=== PATIENT | male | born 1975 | race Hispanic/Latino ===

== ENCOUNTER 2018-03-09 14:16 | Inpatient (IN) | payer MEDICARE ==
[~2018-03-09] VITALS: Ht 170.2 cm; Wt 82.8 kg
[~2018-03-09 14:16] MED LIST: ACIDOPHILUS1 EAC4 PO; ALPRAZOLAM0.25 MG PO; AMBIEN10 MG PO; AMLODIPINE BESY10 MG PO; ATENOLOL100 MG PO; ATRIPLA TABLET1 EACH PO; ATRIPLA TABLET1 TAB PO; CARAFATE1 GM/10 ML PO; CLONIDINE HCL0.1 MG PO; DIOVAN160 MG PO; EMLA CREAM30 GM TOP; EXFORGE 10-1601 EACH PO; FLONASE; KEFLEX500 MG PO; LORATADINE10 M1 PO; MOBIC7.5 MG PO; MUCINEX DM ER1 EACH PO; OMEPRAZOLE40 MG PO; PRESCOBIX PO; PROMETHAZINE HC25 M1 PO; QUETIAPINE FUMA25 MG PO; TIZANIDINE HCL4 M1 PO; TRUVADA 200 MG1 EACH PO; ULTRAM 50MG50 MG PO; Z.0.NEXIUM20 MG PO; [UNRECOGNIZED DRUG - OTHER]
[2018-03-09] MEDS ORDERED: SODIUM CHLORIDE FLUSH 10 ML SYR INJ PRN ×2 (14:45→17:00)
[2018-03-09 15:08] LABS: BASOPHILS # (AUTO) 0.1 (0.0-0.1); BASOPHILS % 0.8 % (0.0-1.0); EOSINOPHILS # (AUTO) 0.2 (0.0-0.4); EOSINOPHILS % 3.3 % (0.0-6.0); HEMATOCRIT 34.1 % (38.2-49.6); HEMOGLOBIN 11.1 g/dL (14.0-18.0); LYMPHOCYTES # (AUTO) 1.8 (1.0-3.2); LYMPHOCYTES % 26.7 % (18.0-39.1); MEAN CORPUSCULAR HEMOGLOBIN 32.6 pg (28-32); MEAN CORPUSCULAR HGB CONC 32.6 g/dL (31-35); MONOCYTES % 15.3 % (4.4-11.3); NEUTROPHILS # (AUTO) 3.5 (2.1-6.9); NEUTROPHILS % 53.4 % (38.7-80.0); PLATELET COUNT 77 x10e3/uL (140-360); RED BLOOD COUNT 3.41 x10e6/uL (4.3-5.7); RED CELL DISTRIBUTION WIDTH 18.9 % (11.7-14.4)
[2018-03-09 15:29] LABS: ALBUMIN 3.6 g/dL (3.5-5.0); ALBUMIN/GLOBULIN RATIO 0.9 (0.8-2.0); ANION GAP 16.1 mmol/L (8-16); CALCIUM 9.8 mg/dL (8.4-10.2); CREATININE, SERUM 2.51 mg/dL (0.72-1.25); POTASSIUM 3.1 mmol/L (3.5-5.1)
[2018-03-09 15:36] LABS: CREATINE KINASE MB 2.1 ng/mL (0-5.0)
[2018-03-09 15:45] LABS: CLARITY,URINE CLEAR (CLEAR); COLOR,URINE YELLOW (YELLOW)
[2018-03-09 15:46] LABS: BACTERIA,URINE FEW /HPF; BILIRUBIN,URINE NEGATIVE (NEGATIVE); EPITHELIAL CELLS,URINE FEW /LPF; KETONES,URINE NEGATIVE (NEGATIVE); LEUKOCYTE ESTERASE ,URINE NEGATIVE (NEGATIVE); NITRITE,URINE NEGATIVE (NEGATIVE); PROTEIN,URINE DIPSTICK NEGATIVE (NEGATIVE); RBC,URINE 0-5 /HPF (0-5); URINE UROBILINOGEN 0.2 mg/dL (0.2 - 1); WBC,URINE (MAN) 0-5 /HPF (0-5)
[2018-03-09 15:49] LABS: PLATELET ESTIMATE SLIGHTLY DECREASED; PLATELET MORPHOLOGY COMMENT NORMAL; RBC MORPHOLOGY COMMENT NORMAL
[2018-03-09] MEDS ORDERED: LEVOFLOXACIN 750MG/D5W 150ML 150 ML IV STA (16:00)
[2018-03-09] MEDS ORDERED: VANCOMYCIN 1GM/NS 250 ML 250 ML IV STA (16:00)
--- NOTE | 2018-03-09 16:25 | Diagnostic Imaging Report ---
EXAMINATION: CHEST SINGLE (PORTABLE) INDICATION: \S\right great toe infection \[id number] \S\1525 COMPARISON: Chest radiograph 11/10/2016 FINDINGS: AP view TUBES and LINES: None. LUNGS: Lungs are well inflated. Central congestion with perihilar interstitial opacities, increased compared to 11/10/2016. PLEURA: No pleural effusion or pneumothorax. HEART AND MEDIASTINUM: Mild enlargement of the cardiac silhouette. BONES AND SOFT TISSUES: No acute osseous lesion. Soft tissues are unremarkable. UPPER ABDOMEN: No free air under the diaphragm. IMPRESSION: Mild cardiomegaly with perihilar interstitial opacities concerning for interstitial edema. Signed by: DR. Curtis Balderas MD on 03/09/2018 4:22 PM
[2018-03-09] MEDS ORDERED: POTASSIUM CHLORIDE 20 MEQ TAB CR PO ONE ×2 (16:30→20:00)
[2018-03-09] MEDS: SODIUM CHLORIDE 0.9% 1000ML 1,000 ML IV SCH (16:47)
[2018-03-09] MEDS ORDERED: DIPHENHYDRAMINE HCL INJ 50 MG/ML VIAL IV STA (16:59)
[2018-03-09] MEDS ORDERED: FENTANYL CITRATE/PF 100MCG/2 ML INJ IV ONE (17:00)
[2018-03-09] MEDS ORDERED: LEVOFLOXACIN 500MG/D5W 100ML 100 ML IV SCH (17:00)
[2018-03-09] MEDS ORDERED: SODIUM CHLORIDE 0.9% 1000ML 1,000 ML IV SCH (17:00)
[2018-03-09] MEDS ORDERED: METHYLPREDNISOLONE SOD SUCC 125 MG/2ML VIAL IV ONE (17:30)
--- OUTSIDE RECORDS SUMMARY | 2018-03-09 17:50 | XMS REPORT ---
Author Author [facility] Address Unknown Phone Unavailable Care Team Providers Care Value Stream Leader Name Role Phone DANIELLE BOSTON Unavailable Unavailable Problems This patient has no known problems. Allergies, Adverse Reactions, Alerts This patient has no known allergies or adverse reactions. Medications This patient has no known medications. Results Test Description Test Time Test Comments Text Results Atomic Results Result Comments CHEST SINGLE (PORTABLE) [place] [id number] Patient Name: RODOLFO SELF MR #: [id number] : 1975 Age/Sex: 42/M Req #: [id number] Adm Physician: Ordered by: RYAN COOPER Report #: [id number] Location: ER Room/Bed: Procedure: [id number] DX/CHEST SINGLE (PORTABLE) Exam Date: Exam Time: 1525 REPORT STATUS: Signed EXAMINATION: CHEST SINGLE (PORTABLE) INDICATION: COMPARISON: Chest radiograph 11/10/2016 FINDINGS: AP view TUBES and LINES: None. LUNGS: Lungs are well inflated. Central congestion with perihilar interstitial opacities, increased compared to 2016. PLEURA: No pleural effusion or pneumothorax. HEART AND MEDIASTINUM: Mild enlargement of the cardiac silhouette. BONES AND SOFT TISSUES: No acute osseous lesion. Soft tissues are unremarkable. UPPER ABDOMEN: No free air under the diaphragm. IMPRESSION: Mild cardiomegaly with perihilar interstitial opacities concerning for interstitial edema. Signed by: DR. Curtis Bateman MD on 03/09/2018 4:22 PM Dictated By: CURTIS BATEMAN MD 162 Transcribed By: BJ on 03/09/181621 COPY TO : RYAN COOPER
[2018-03-09] MEDS ORDERED: ACETAMINOPHEN/CODEINE 300MG - 30MG TAB PO PRN (19:00)
[2018-03-09] MEDS ORDERED: HYDROCODONE/APAP 5MG-325MG TAB PO PRN (19:30)
[2018-03-09] MEDS ORDERED: PLAVIX75 MG PO (19:41)
[2018-03-09] MEDS ORDERED: COREG3.125 MG PO (19:41)
[2018-03-09] MEDS ORDERED: ZOLPIDEM TARTRAT5 MG PO (19:41)
[2018-03-09] MEDS ORDERED: GABAPENTIN400 MG PO (19:41)
[2018-03-09] MEDS ORDERED: TYLENOL WITH C1 EACH PO (19:41)
[2018-03-09] MEDS ORDERED: PREZISTA75 MG PO (19:41)
[2018-03-09] MEDS ORDERED: PANTOPRAZOLE SO40 MG PO (19:41)
[2018-03-09] MEDS ORDERED: SUCRALFATE1 GM PO (19:41)
[2018-03-09] MEDS ORDERED: ABACAVIR300 MG PO (19:41)
[2018-03-09] MEDS ORDERED: LASIX20 MG PO (19:41)
[2018-03-09] MEDS ORDERED: NORVIR100 MG PO (19:41)
[2018-03-09] MEDS ORDERED: ASPIR 8181 MG PO (19:41)
[2018-03-09] MEDS ORDERED: LEVOFLOXACIN5 ML PO (19:41)
[2018-03-09] MEDS ORDERED: NORCO 5-325 TA1 EACH PO (19:41)
[2018-03-09] MEDS ORDERED: ISENTRESS400 MG PO (19:41)
--- NOTE | 2018-03-09 20:52 | History and Physical ---
CHIEF COMPLAINT: Left groin wound infected, painful, draining. Hence, infectious disease specialist, Dr. James, referred the patient to the hospital today. HISTORY OF PRESENT ILLNESS: This 42-year-old, pleasant male with a past medical history of multiple medical problems was admitted at [facility] this afternoon with the above complaints. The patient has been in and out of the hospital for the last 1 month. As per the patient, he had acute OK on 02/02/2018. The patient was taken by ambulance to [facility]. The patient was diagnosed with ST-elevation myocardial infarction. At that time, the patient was seen by manager supplier, Dr. Pacheco. The patient had coronary angiogram done and stent put in LAD. The patient was also found to have ischemic cardiomyopathy with acute systolic failure and tiny VSD. Hence, the patient was transferred from [facility] to [facility]. There, the patient on 02/07/2018 had VSD closure done. Echo done on 02/14/2018 at [facility] showed ejection fraction of 35% to 40%. The patient was sent home on 02/18/2018. At that time, the patient had left groin drainage, swelling and pain at the site of cardiac catheterization. Since the last 3 to 4 days, the patient started having increased fluid discharge from the left groin wound progressively getting red and painful, and yellow, purulent discharge was starting. Hence, infectious disease, Dr. James, referred the patient to the ER today. At present, the patient is lying comfortably in bed in no apparent distress. No chest pain. No shortness of breath. No nausea, vomiting, or diarrhea. No abdominal pain, loss of consciousness, or palpitations. No headaches. No hematemesis. No melena, hematuria or dysuria. No fever. No cough. No witnessed seizures. PAST MEDICAL HISTORY 1. Recent ST-elevation OK, status post LAD PTCA stent. 2. Ischemic cardiomyopathy with ejection fraction of 35% to 40%. 3. Recent VSD closure. 4. Chronic kidney failure. 5. HIV. MEDICATIONS 1. Abacavir. 2. Tylenol No. 3. 3. Xanax. 4. Aspirin 81 mg. 5. Coreg 3.125 p.o. q.12. 6. Plavix 75 mg daily. 7. Prezista 800 mg daily. 8. Lasix 60 mg daily. 9. Gabapentin 200 mg 3 times a day. 10. [place] 5 per 325 p.o. q.4 h. 11. Levaquin 500 mg daily. 12. 40 mg b.i.d. 13. Isentress 400 mg p.o. b.i.d. 14. Norvir 100 mg p.o. daily. 15. Ambien 5 mg p.o. nightly. ALLERGIES: PENICILLIN, MORPHINE, TRAMADOL, KETORALAC. SURGICAL HISTORY: As above. SOCIAL HISTORY: No smoking. No alcohol. No illicit drug use. FAMILY HISTORY: Noncontributory. REVIEW OF SYSTEMS: As per HPI. PHYSICAL EXAMINATION GENERAL: The patient is alert and oriented times 3, in no apparent distress, lying in bed. No cyanosis. No icterus. No pallor. VITALS: Temperature is 99, pulse 90 per minute, respiratory rate 18 per minute, blood pressure 115/80, saturation 100%. HEENT: Normocephalic and atraumatic. PERRLA. NECK: Soft and supple. No JVD. No lymphadenopathy. LUNGS: Air entry bilaterally equal. No rales or rhonchi. ABDOMEN: Soft and nontender. Bowel sounds plus. DRAGLINE OPERATOR HELPER: Alert and oriented times 3. No focal deficit. EXTREMITIES: Left groin wound plus, drainage plus, surrounding ecchymosis plus. LABORATORY: On admission to ER, white count 6.5, hemoglobin 11.1, hematocrit 34.1, platelets 77. Sodium 139, potassium 3.1, chloride 102, bicarb 24, BUN 31, creatinine 2.51, glucose 108. LFTs noted. BNP 1522. Urine is negative. Chest x-ray: Mild cardiomegaly with perihilar interstitial opacities concerning for interstitial edema. EKG shows normal sinus rhythm. Inferior infarct, age undetermined. Lateral ischemia. ASSESSMENT 1. Infected left groin wound with possible abscess, status post cardiac catheterization. 2. History of recent ST-elevation myocardial infarction, status post percutaneous transluminal coronary angioplasty and stent. 3. Ischemic cardiomyopathy. 4. Human immunodeficiency virus. 5. Thrombocytopenia. PLAN 1. Admit the patient to [facility]. Patient started on IV antibiotics, vancomycin and Levaquin. As per ID, Dr. James, pancultures. Surgery consultation with Dr. Rios. 2. History of recent ST-elevation OK and ischemic cardiomyopathy status post PTCA and stent and VSD status post closure. Cardiology consultation with Dr. Pacheco. Lasix 40 mg IV q.12 h. 3. Bramp-no-vlrdneu renal failure. Get ultrasound of renal, serial electrolytes, renal consultation with Dr. Berry. 4. Thrombocytopenia. Will get hematology consultation with Dr. Ramirez. Patient already took aspirin and Plavix at home today. Further antiplatelet therapy as per cardiology and hematology consultations. 5. Further care and treatment per the clinical course of the patient in the hospital. The prognosis and condition are guarded. Discussed with the patient and mother at bedside in detail. Job#: [id number]
[2018-03-09] MEDS: FUROSEMIDE INJ 10 MG/ML 4 ML VIAL IV SCH (21:01)
[2018-03-09 21:03] VITALS: BP 112/82
[2018-03-09] MEDS: HYDROMORPHONE 2MG/ML INJ IV PRN (21:22)
[2018-03-09 22:00] VITALS: BP 112/82
[2018-03-10] VITALS (10 sets, daily range): BP systolic 110–126; BP diastolic 77–93
--- NOTE | 2018-03-10 01:21 | Diagnostic Imaging Report ---
EXAM: Renal Ultrasound INDICATION: Sepsis, hypokalemia COMPARISON: None TECHNIQUE: Transverse and longitudinal sonographic images of the kidneys and bladder were obtained. FINDINGS: RIGHT KIDNEY: 7.4 x 5.1 x 5.4 cm, normal cortical thickness. Echogenicity: Increased Hydronephrosis: None Calculi: None Cyst/Mass: None LEFT KIDNEY: 6.1 x 7.8 x 6 cm, normal cortical thickness. Echogenicity: Increased Hydronephrosis: None Calculi: None Cyst/Mass: None BLADDER: Normal in appearance. IMPRESSION: Small kidneys with increased echogenicity suggests chronic renal insufficiency. Signed by: Dr. Aissatou Cooper M.D. on 03/10/2018 1:17 AM
[2018-03-10] MEDS: HYDROMORPHONE 2MG/ML INJ IV PRN ×4 (03:21→19:56)
[2018-03-10] MEDS ORDERED: LEVOFLOXACIN 500MG/D5W 100ML 100 ML IV SCH (05:00)
[2018-03-10 06:29] LABS: BASOPHILS % 0.3 % (0.0-1.0); HEMOGLOBIN 10.2 g/dL (14.0-18.0); LYMPHOCYTES # (AUTO) 0.4 (1.0-3.2); MEAN CORPUSCULAR HEMOGLOBIN 32.9 pg (28-32); MEAN CORPUSCULAR HGB CONC 31.9 g/dL (31-35); MEAN CORPUSCULAR VOLUME 103.2 fL (81-99); MONOCYTES % 1.4 % (4.4-11.3); NEUTROPHILS # (AUTO) 2.5 (2.1-6.9); RED CELL DISTRIBUTION WIDTH 18.7 % (11.7-14.4)
[2018-03-10 06:45] LABS: PLATELET COUNT 47 x10e3/uL (140-360)
[2018-03-10 07:10] LABS: ALBUMIN 3.2 g/dL (3.5-5.0); ALBUMIN/GLOBULIN RATIO 0.9 (0.8-2.0); ANION GAP 14.3 mmol/L (8-16); CALCIUM 8.9 mg/dL (8.4-10.2); CREATININE, SERUM 2.02 mg/dL (0.72-1.25); POTASSIUM 3.3 mmol/L (3.5-5.1)
[2018-03-10] MEDS: FUROSEMIDE INJ 10 MG/ML 4 ML VIAL IV SCH ×2 (09:00→21:50)
[2018-03-10] MEDS ORDERED: MAGNESIUM SULFATE 2GM/50ML 50 ML IV ONE (09:30)
[2018-03-10] MEDS ORDERED: POTASSIUM CHLORIDE 20 MEQ TAB CR PO ONE ×3 (09:30→13:30)
[2018-03-10] MEDS: VANCOMYCIN 1GM/NS 250 ML 250 ML IV SCH (09:56)
[2018-03-10] MEDS ORDERED: ACETAMINOPHEN 325 MG TAB PO PRN (10:15)
[2018-03-10] MEDS ORDERED: DIATRIZOATE MEGL/DIATRIZOA SOD 30 ML BTL PO ONE (11:05)
[2018-03-10 11:25] LABS: ANISOCYTOSIS SLIGHT; LYMPHOCYTES % (MANUAL) 10 % (19-48); MONOCYTES % (MANUAL) 2 % (3.4-9.0); NEUTROPHILS % (MANUAL) 88 % (40-74); PLATELET ESTIMATE MODERATELY DECREASED; PLATELET MORPHOLOGY COMMENT NORMAL; RBC MORPHOLOGY COMMENT NORMAL
--- NOTE | 2018-03-10 13:31 | Consultation ---
DATE OF CONSULTATION: March 10, 2018 ADDENDUM We will get an MRI, and depending on the MRI result, we may have to do surgery today in this hospital or move him to the medical Center. Discussed with the patient and we will follow. We will also continue to follow with vancomycin trough, CBC, Chem panel, and cultures. Job#: [id number] JASWINDER
--- NOTE | 2018-03-10 13:49 | Consultation ---
DATE OF CONSULTATION: March 10, 2018 CHIEF COMPLAINT: Infected left groin wound. HISTORY OF PRESENT ILLNESS: The patient is a 42-year-old male who is immunocompromised and is HIV positive, and he has had an acute TN on February 02 of this year. He was taken to [facility]. He had stents placed through the left groin by interventional cardiology. At that time, he was also found to have ischemic cardiomyopathy and a small VSD. He was transferred to [facility] where the VSD closure was performed on February 07. The patient was sent home on 02/18; however, recommendation while he was in the hospital was for a muscle flap to be placed in the left groin for the chronic infected region. Cardiology stated that the patient was too acute after the cardiac event to undergo a surgery of that magnitude and it was put on hold. Patient came to our ER yesterday with complaints of fever and increased drainage from the left groin. Consultations now requested are plastic surgery regarding the timing and the performance of vascularized tissue graft of the left groin. PAST MEDICAL AND PAST SURGICAL HISTORY: Noncontributory. PERTINENT PHYSICAL EXAMINATION SKIN: The left groin has moderate amount of ecchymosis. There is an Ethibond suture in the left groin. There is an approximately 4-5 cm linear incision, which has full thickness dehiscence in 2 locations measuring a total of 1 cm in length open down to the subcutaneous tissue. There is what appears to be seropurulent type fluid that is draining. The area is very tender to touch and it is as much and previously fairly indurated consistent with the chronicity of the recent procedure. LABORATORY DATA: The WBCs are 2.92 today, hemoglobin is 10, hematocrit is 32, and platelets are 47,000. IMPRESSION: Left groin wound secondary to interventional cardiologic procedure. 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 The patient was scheduled for CAT scan of the abdomen and pelvis without IV contrast because of poor renal function to look at the femoral area. I have discussed the CAT scan with the radiologist, and since the patient cannot receive IV contrast as per nephrology consult, a better test would be an MR without contrast of the femoral area. We need to elucidate whether there is infection in and around the femoral artery. If there is, then this patient would best be served by going downtown where vascular surgery support for this type of procedure is present. Thank you for allowing me to participate in the care of your patient. Job#: [id number] JASWINDER
--- NOTE | 2018-03-10 14:10 | Consultation ---
DATE OF CONSULTATION: March 10, 2018 REASON FOR CONSULTATION: Acute kidney injury. HISTORY OF PRESENT ILLNESS: History is predominantly from patient and partly from chart. Patient came in with possible infection of his femoral artery area, currently seen by plastics who suggested a CT contrast given the patient's workup which I will discuss in a short while of the femoral artery area. Renal consulted for management of acute kidney injury. Labs show BUN 30, creatinine 2.0, bicarbonate 19, creatinine 3.3. White count shows 2.92, hemoglobin 10.2 with a platelet 47. ALLERGIES: HE IS ALLERGIC TO PENICILLIN, KETOROLAC, MORPHINE, P[place]APP[place], AND TRAMADOL. SOCIAL HISTORY: He does not smoke or drink. PAST MEDICAL HISTORY: Significant for HIV. Patient denies prior history of any kidney insufficiency or kidney stone disease. History of diabetes, hypertension. PATIENT OF 1. Dr. Micky Serrano. 2. Dr. James. MEDICATIONS: He is on immunosuppressive medications and antiretroviral medications. His current medications include Levaquin 750 mg, mag sulfate, normal saline at 125 mL an hour which has been stopped. He was given some IV bicarb stat too. He is on furosemide 40 mg IV q.12. He received one dose of methylprednisolone. He is on carvedilol 3.125 mg q.12 and zolpidem p.r.n. He is on vancomycin 1 gram IV daily. He has had gram stain, wound culture. Blood cultures are pending. Urine culture are not back yet. PHYSICAL EXAMINATION GENERAL: Awake, alert, lying supine. No apparent distress. VITALS: Blood pressure 112/77, pulse rate 105, afebrile. HEAD AND NECK: Cornea clear. Mucosa dry. DIAGNOSTIC DATA: Chest x-ray shows evidence of congestive heart failure by my exam with evidence of cardiomegaly. Kidney ultrasound shows shrunken kidneys, 7.4 cm right kidney with increased echogenicity. Left kidney 6.1 cm with increased echogenicity. IMPRESSION AND PLAN: Fguvj-kb-keqqwuh kidney failure with evidence of chronic kidney disease, underlying renal tubular acidosis with hypokalemia. Total bilirubin is slightly elevated. Plan on replacement of potassium p.o. We will gently diurese. Currently, patient is not short of breath or any overt congestive heart failure. We will place on Lasix 40 mg p.o. b.i.d.. We will get spot urine protein-creatinine ratio. Patient at pgifspee-nf-vnsd risk for dye-induced nephropathy if IV contrast is used. Discussed with plastic surgery. If it is absolutely necessary, they can proceed after I explained to patient and if he agrees, but consider noncontrast CT or an alternative procedure. Patient does have advanced kidney failure, serum creatinine grossly underestimating underlying GFR. Job#: [id number] VAS
--- NOTE | 2018-03-10 14:24 | Consultation ---
DATE: March 10, 2018 CARDIOLOGY CONSULTATION REASON FOR CONSULTATION: Ongoing cardiac care. CONSULTING PHYSICIAN: Dr. Serrano. HISTORY OF PRESENT ILLNESS: Mr. Cornejo is a 42-year-old male with a complicated cardiac history, more recently had ST-elevation myocardial infarction on the 02 of February and was cared for at [facility] by Dr. Pacheco where he had a coronary angiogram done and a stent placed in his LAD. He was also noted to have ischemic cardiomyopathy with acute heart failure and also a tiny VSD. After his procedure, he was sent to [facility] in the [facility] where he underwent his VSD closure on January. It is reported that after that he noticed oozing and drainage in his left groin access site, and since then, he reports the drainage and the oozing has persisted. He came into [facility] per request of Dr. James due to the drainage in his left groin, also fever and chills, and also his history of HIV. We were consulted due to his ongoing cardiology needs. At the present time, patient endorses some shortness of breath and fatigue and also palpitations. He denies any chest pain. He does complain of left lower leg pain that worsens upon standing and also walking. Denied any dizziness, syncope, or chills at this time. PHYSICAL EXAMINATION VITAL SIGNS: Temperature 98.5, pulse 110, respiratory rate 18, blood pressure 111/86, and oxygen saturation 99% on room air. GENERAL: Alert and oriented x3, resting comfortably in bed, does not appear to be in any acute distress. Mother at the bedside. NECK: Supple. JVD noted bilaterally. No carotid bruits. CARDIOVASCULAR: Regular rate and rhythm. Tachycardic. Systolic ejection murmur present. S4 present. Normal S1 and S2. LUNGS: Diminished breath sounds anterior-posterior lower lobes; otherwise, clear to auscultation. No crackles, wheezing, or rhonchi noted. ABDOMEN: Soft and nontender. EXTREMITIES: Lower extremities, 2+ pitting edema. SKIN: Incisional site left groin with drainage noted. CARDIOVASCULAR MEDICATIONS: Coreg 3.125 mg p.o. b.i.d., Lasix 40 mg p.o. b.i.d., and potassium chloride 40 mEq p.o. LABORATORY DATA: WBC 2.92, hemoglobin 10.2, hematocrit 32.0, and platelets 47. Sodium 136, potassium 3.3, BUN 30, and creatinine 2.02. AST 26, ALT 18, and alkaline phosphatase 122. IMAGING: Chest x-ray with mild cardiomegaly and perihilar interstitial opacities concerning for interstitial edema. Renal ultrasound with small kidneys with increased echogenicity suggestive of chronic renal insufficiency. Telemetry, sinus tachycardia with left bundle branch block. IMPRESSION 1. Recent ST-elevation myocardial infarction. 2. Coronary artery disease. 3. Systolic heart failure. 4. Human immunodeficiency virus. 5. Chronic renal failure. 6. Thrombocytopenia. 7. Infected left groin wound with secondary left lower extremity pain. PLAN: Obtain repeat echocardiogram and bilateral lower extremity venous Dopplers. Continue the above listed cardiac medications. Transition p.o. Lasix to IV and up-titrate diuretic. Volume management per applications project manager. Patient not on dual-antiplatelet therapy with noted thrombocytopenia above. Hematology has been consulted. We will await their recommendations. Monitor on telemetry for now. Continue antimicrobial therapy per infectious disease. Up-titrate beta concetta above for better rate control. We will continue to follow very closely. Guarded prognosis. Thank you, Dr. Serrano, for this consultation. Dictated By: Fany Franklin NP Job#: [id number] JASWINDER
--- NOTE | 2018-03-10 14:58 | Diagnostic Imaging Report ---
EXAM: MRI HIP LEFT WO, MRI PELVIS WO INDICATION: \S\wound on left groin/thigh COMPARISON: Abdominal CT 10/22/2015 TECHNIQUE: Multiplanar and multisequence imaging was performed of the pelvis and left hip without IV contrast. Left Hip: Coronal T1, coronal and sagittal T2 fat-sat, coronal STIR, coronal/oblique axial/coronal PD/fat-sat. Pelvis: Coronal/axial T1, axial/sagittal T2, sagittal T2 fat sat IV Contrast: None secondary to low GFR Medications: None COMPLICATIONS: None FINDINGS: Limited evaluation secondary to lack of IV contrast. SOFT TISSUES: A 4.7 x 3.6 x 2.1 cm (SI x AP x TV) triangular shaped area in the left groin (left hip oblique axial PD/FS image 18) is hyperintense on T2WI and T1 intermediate in signal. This area extends from the skin to the common femoral artery until the origin of the superficial femoral artery. Edema is also noted in the subcutaneous fat of the anterior thigh. The flow voids in the artery in vein deep to this area are preserved. Fat-containing inguinal hernias bilaterally. BLADDER: Unremarkable. GI TRACT: No abnormal distention, wall thickening, or evidence of bowel obstruction. RECTUM: Rectum and mesorectum are unremarkable. LYMPH NODES: No lymphadenopathy. VESSELS: Flow voids are preserved. Limited evaluation for vascular pathology the absence of intravenous contrast. PERITONEUM / RETROPERITONEUM: No free air or fluid. BONES: No suspicious bone marrow signal abnormalities. Degenerative disc disease of the lower lumbar spine. IMPRESSION: Findings in keeping with reported vascular access in the left groin. There is nonspecific edema in the subcutaneous fat which may suggest cellulitis, as well as a more focal collection extending from the skin to the common femoral artery. The T2 hyperintensity suggests edema/inflammation or recent access rather than fibrosis from more remote access, although evaluation for infection is otherwise limited without IV contrast. Signed by: DR. Curtis Balderas MD on 03/10/2018 2:54 PM
[2018-03-10] MEDS: SODIUM CHLORIDE 0.9% 1000ML 1,000 ML IV SCH (15:00)
--- NOTE | 2018-03-10 15:36 | Diagnostic Imaging Report ---
EXAM: Complete Abdominal Ultrasound INDICATION: \S\cytopenia COMPARISON: Renal ultrasound 03/09/2018 TECHNIQUE: Transverse and longitudinal images of the upper abdomen were obtained. FINDINGS: Liver: Size: 17.8 cm in the right midclavicular line, enlarged Appearance: Increased echogenicity, smooth contour Mass: No focal masses Spleen: Size: 9.6 cm in length, normal Echogenicity: Normal Mass: No focal masses Gallbladder: Stones/Sludge: None Wall: 0.6 cm Appearance: No pericholecystic fluid or hydrops. Sonographic Solis's Sign: Negative Bile Ducts: Intrahepatic Ducts: No dilatation Extrahepatic Ducts: Common bile duct measures 0.2 cm, no dilatation Pancreas: Incompletely visualized due to overlying bowel gas, but no abnormality identified involving the visualized portions of the pancreas. Right Kidney: Size: 7.2 cm, small Echogenicity: Increased Parenchymal thickness: Normal Collecting System: No hydronephrosis Stone: None Cyst/Mass: None Left Kidney: Size: 9.3 cm, small Echogenicity: Increased Parenchymal thickness: Normal Collecting System: No hydronephrosis Stone: None Cyst/Mass: None Vessels: Aorta: Not well-visualized secondary to overlying bowel gas. Visualized portions are normal Inferior Vena Cava: Visualized portions are normal Main Portal Vein: 1.3 cm, upper normal size with hepatopetal flow. Free Fluid: No ascites or pleural effusion IMPRESSION: Mild gallbladder wall thickening, nonspecific in the absence of cholelithiasis or additional evidence of acute cholecystitis. Hepatomegaly and increased liver echogenicity likely secondary to hepatic steatosis. Small hyperechoic kidneys suggestive of medical renal disease. Signed by: DR. Curtis Balderas MD on 03/10/2018 3:33 PM
--- NOTE | 2018-03-10 16:24 | Consultation ---
DATE OF CONSULTATION: March 10, 2018 REASON FOR CONSULTATION 1. Surgical site infection, recommendation on antibiotic. 2. Fever. 3. HIV and AIDS. HISTORY OF PRESENT ILLNESS: This is a well known to me 42-year-old gentleman with history of HIV and AIDS, history of coronary artery disease, history of chronic kidney disease, and history of renal stone. Patient was recently in [facility] where he had myocardial infarction. He was transferred to the medical [place]. The patient apparently had VSD. The patient was transferred from [place] to [facility], and on February 07, 2018, had VSD closure done through an access from the femoral artery on the left. The patient was discharged home, but before discharge was noted to be having serosanguineous drainage, coming from the groin. He was supposed to see a vascular surgeon; however, because he just had recent myocardial infarction, he was told to go home and follow up as an outpatient. Then, he showed up to [place] again with some shortness of breath and that was addressed and he was discharged home. He came to see me in my office a week or so ago. I gave him the option to see if we can have Dr. Rios close this wound and he preferred that if we can do it here, so I was going to electively admit him tomorrow, but he called me yesterday with fever and chills and I told him to come to the hospital. Patient came to the hospital. He said there was drainage coming from his groin. There is also redness, swelling, and pain, so patient came to the emergency room where he was being admitted. PAST MEDICAL HISTORY: HIV and AIDS, coronary artery disease, recently had myocardial infarction status post LAD PTCA stent placement, status post ischemic cardiomyopathy with ejection fraction of 35%-40%, recently had a VSD closure, chronic kidney disease, HIV, and AIDS. MEDICATION: He is on abacavir, Tylenol No. 3, Xanax, aspirin, Coreg, Plavix, Prezista, Lasix, gabapentin, Narcan, and Ambien. He is on vancomycin, Dilaudid, Lasix, and levofloxacin. ALLERGIES: PENICILLIN. SOCIAL HISTORY: There is no smoking, drug abuse, or alcohol abuse. He is homosexual, but he had no sexual activity recently. REVIEW OF SYSTEMS CONSTITUTIONAL: He is just having pain. He does have issue with chronic pain and neuropathy. HEENT: There is no headache, visual change, or hearing change. GI: There is no nausea, no vomiting, and no diarrhea. CARDIAC: There is no arrhythmia. NEUROLOGICAL: No seizure activity. SKIN: There are no other rashes. LABORATORY DATA: Reviewed. On admission, white count 6.59, hemoglobin 11.1, and his platelet of 77. His sodium 136, potassium 3.3, and creatinine 2.02. PHYSICAL EXAMINATION GENERAL: He is currently alert and oriented, does not seem to be in acute distress. VITALS: Stable, currently afebrile. HEENT: He does not appear icteric. Normocephalic. NECK: Supple. No JVD. No lymphadenopathy. No thyromegaly. CHEST: Clear bilaterally. HEART: S1 and S2. No murmur. ABDOMEN: Soft. Bowel sounds present. EXTREMITIES: There is no edema. SKIN: The groin, there is some old bruising. I do not see rebecca redness at the present time. He has no pus or drainage at the present time that I can see. IMPRESSION 1. Drainage with pain and fever, concern about infection. Right now, he is doing good. Continue vancomycin and Levaquin. Obtain wound cultures. An arterial Doppler preliminary result does not show any abscess. MRI was ordered. 2. Chronic kidney disease, seems to be slowly getting worse. Discussed with the patient. He is aware of it. 3. Human immunodeficiency virus: Continue all his medication. 4. We will follow. Job#: [id number] JASWINDER
[2018-03-10] MEDS ORDERED: CARVEDILOL 3.125 MG TAB PO SCH (17:00)
[2018-03-10] MEDS: SODIUM BICARBONATE 650 MG TAB PO SCH (17:29)
[2018-03-10] MEDS: CARVEDILOL 12.5 MG TAB PO SCH (17:32)
[2018-03-10] MEDS ORDERED: FUROSEMIDE 40 MG TAB PO SCH (18:00)
[2018-03-10] MEDS: ZOLPIDEM TARTRATE 5 MG TAB PO PRN (23:00)
[2018-03-11] VITALS (8 sets, daily range): BP systolic 104–128; BP diastolic 82–94
[2018-03-11] MEDS: HYDROMORPHONE 2MG/ML INJ IV PRN ×6 (00:51→21:14)
[2018-03-11 06:37] LABS: BASOPHILS % 0.1 % (0.0-1.0); HEMATOCRIT 33.7 % (38.2-49.6); HEMOGLOBIN 10.7 g/dL (14.0-18.0); LYMPHOCYTES # (AUTO) 1.1 (1.0-3.2); LYMPHOCYTES % 9.3 % (18.0-39.1); MEAN CORPUSCULAR HGB CONC 31.8 g/dL (31-35); MONOCYTES # (AUTO) 1.1 (0.2-0.8); MONOCYTES % 9.7 % (4.4-11.3); NEUTROPHILS % 79.9 % (38.7-80.0); RED BLOOD COUNT 3.24 x10e6/uL (4.3-5.7); RED CELL DISTRIBUTION WIDTH 19.2 % (11.7-14.4)
[2018-03-11 06:40] LABS: PLATELET COUNT 42 x10e3/uL (140-360)
[2018-03-11 07:07] LABS: ALBUMIN 3.4 g/dL (3.5-5.0); ALBUMIN/GLOBULIN RATIO 0.9 (0.8-2.0); CALCIUM 9.3 mg/dL (8.4-10.2); CREATININE, SERUM 2.18 mg/dL (0.72-1.25)
[2018-03-11 08:13] LABS: LARGE PLATELETS MODERATE; PLATELET ESTIMATE MARKEDLY DECREASED; RBC MORPHOLOGY COMMENT NORMAL
[2018-03-11] MEDS: SODIUM BICARBONATE 650 MG TAB PO SCH ×2 (09:11→16:26)
[2018-03-11] MEDS: VANCOMYCIN 1GM/NS 250 ML 250 ML IV SCH (09:11)
[2018-03-11] MEDS: FUROSEMIDE INJ 10 MG/ML 4 ML VIAL IV SCH ×2 (09:11→21:14)
[2018-03-11] MEDS: CARVEDILOL 12.5 MG TAB PO SCH ×2 (09:11→16:26)
[2018-03-11] MEDS: LEVOFLOXACIN 250MG/D5W 50ML 50 ML IV SCH (10:00)
--- NOTE | 2018-03-11 15:55 | Progress Note ---
DATE: March 11, 2018 CARDIOLOGY PROGRESS NOTE SUBJECTIVE: Patient reports he feels a little bit better. He does endorse left lower extremity pain and drainage in the left groin. Denies any chest pain or shortness of breath. OBJECTIVE VITAL SIGNS: Temperature 97.1, pulse 112, respiratory rate 13, blood pressure 128/94, oxygen saturation 94% on room air. CARDIOVASCULAR MEDICATIONS 1. 40 mg of furosemide IV q.12. 2. Chloride 25 mg p.o. daily. LABS: Sodium 141, potassium 4.0, BUN 34, creatinine 2.18, ALT 20, AST 27. WBC 11.25, hemoglobin 10.7, hematocrit 37.7, platelets 42. TELEMETRY: Sinus tach. GENERAL: Alert and oriented times 3, resting comfortably in bed. Does not appear to be in any acute distress. Mom at the bedside. NECK: Supple. JVD noted bilaterally. No carotid bruit. CARDIOVASCULAR: Regular rate and rhythm, tachycardic. A 3/6 systolic ejection murmur is noted. Normal S1, S2. LUNGS: Clear to auscultation throughout. No wheezing. No rhonchi or crackles. ABDOMEN: Soft, nontender. LOWER EXTREMITIES: Trace edema bilaterally. Left groin incision site is still draining purulent drainage. IMPRESSION 1. Recent ST-elevation myocardial infarction. 2. Coronary artery disease, status post stenting. 3. Systolic heart failure, most recent ejection fraction 30%. 4. Human immunodeficiency virus. 5. Chronic renal failure. 6. Thrombocytopenia. 7. Infected left groin wound. 8. Leukocytosis. PLAN: Patient will need LifeVest upon discharge. Continue telemetry monitoring at all times. Beta concetta dose has been up-titrated today. Continue medical therapy for systolic heart failure. Monitor the patient very closely. Volume management per nephrology. Patient not on antiplatelet therapy with noted thrombocytopenia above and also needing possible plastic surgery. The patient will be moderate to severe risk for any surgical procedure. Antimicrobial therapy per infectious disease. Will continue to follow very closely. Guarded prognosis. Dictated by Fany Franklin NP. Job#: [id number]
[2018-03-11] MEDS: ZOLPIDEM TARTRATE 5 MG TAB PO PRN (22:55)
[2018-03-12] VITALS (7 sets, daily range): BP systolic 93–124; BP diastolic 72–87
[2018-03-12] MEDS: HYDROMORPHONE 2MG/ML INJ IV PRN ×5 (01:05→20:37)
[2018-03-12 06:38] LABS: BASOPHILS % 0.3 % (0.0-1.0); HEMATOCRIT 34.5 % (38.2-49.6); HEMOGLOBIN 10.8 g/dL (14.0-18.0); LYMPHOCYTES # (AUTO) 1.8 (1.0-3.2); LYMPHOCYTES % 18.8 % (18.0-39.1); MEAN CORPUSCULAR HEMOGLOBIN 32.7 pg (28-32); MEAN CORPUSCULAR HGB CONC 31.3 g/dL (31-35); MEAN CORPUSCULAR VOLUME 104.5 fL (81-99); MONOCYTES # (AUTO) 1.2 (0.2-0.8); MONOCYTES % 12.2 % (4.4-11.3); NEUTROPHILS # (AUTO) 6.7 (2.1-6.9); NEUTROPHILS % 67.9 % (38.7-80.0); PLATELET COUNT 51 x10e3/uL (140-360); RED CELL DISTRIBUTION WIDTH 18.7 % (11.7-14.4)
[2018-03-12 06:56] LABS: ALBUMIN 3.6 g/dL (3.5-5.0); ANION GAP 15.9 mmol/L (8-16); CALCIUM 9.7 mg/dL (8.4-10.2); CREATININE, SERUM 2.05 mg/dL (0.72-1.25); POTASSIUM 3.9 mmol/L (3.5-5.1)
[2018-03-12] MEDS: CARVEDILOL 12.5 MG TAB PO SCH ×2 (08:00→17:35)
[2018-03-12 08:05] LABS: ANISOCYTOSIS MODE; MICROCYTOSIS SLIG; PLATELET ESTIMATE MARKEDLY INCREASED; PLATELET MORPHOLOGY COMMENT FEW GIANT; POIKILOCYTOSIS SLIGHT
[2018-03-12 08:06] LABS: ELLIPTOCYTE, RBC SLIGHT; RBC MORPHOLOGY COMMENT NORMAL
[2018-03-12] MEDS: VANCOMYCIN 1GM/NS 250 ML 250 ML IV SCH (08:33)
[2018-03-12] MEDS: LEVOFLOXACIN 250MG/D5W 50ML 50 ML IV SCH (08:33)
[2018-03-12] MEDS: SODIUM BICARBONATE 650 MG TAB PO SCH ×2 (08:33→17:35)
[2018-03-12] MEDS: FUROSEMIDE INJ 10 MG/ML 4 ML VIAL IV SCH ×2 (09:00→21:00)
--- NOTE | 2018-03-12 16:26 | Progress Note ---
DATE: March 12, 2018 Mr. Cornejo is doing better. There is no new complaints. I have discussed the case with the plastic surgeon here and he thinks that it is a risky procedure and he would rather have the surgery done downtown. Also, the patient has low platelets. The patient has no complaints at the present time. REVIEW OF SYSTEMS: HEENT: Negative. PULMONARY: Negative CARDIAC: Negative. : Negative. SKIN: There are no other rashes. PHYSICAL EXAMINATION GENERAL: Alert, oriented, does not seem to be in any acute distress. VITAL SIGNS: Stable, currently afebrile. HEENT: Not icteric. NECK: Supple. CHEST: Clear. HEART: S1 and S2, no murmur. ABDOMEN: Soft. Bowel sounds present. No tenderness. EXTREMITIES: No edema. The wound in the groin seems to be getting slowly better. On the cultures, there is no growth. IMPRESSION AND PLAN: 1. Dehiscence of the wound in a patient who had a vascular procedure. Options will be to discharge the patient and follow up with plastic surgery at the medical center. Will try wound care and maybe antibiotics at [facility]. He is thinking about it. 2. HIV. 3. Chronic kidney disease. 4. Chronic pain. 5. Will follow. Job#: [id number]
[2018-03-12] MEDS: ZOLPIDEM TARTRATE 5 MG TAB PO PRN (23:31)
[2018-03-13] MEDS: HYDROMORPHONE 2MG/ML INJ IV PRN ×4 (00:40→18:22)
[2018-03-13 01:00] VITALS: BP 110/76
[2018-03-13 04:00] VITALS: BP 105/77
[2018-03-13 06:14] LABS: BASOPHILS % 0.2 % (0.0-1.0); EOSINOPHILS # (AUTO) 0.1 (0.0-0.4); EOSINOPHILS % 1.3 % (0.0-6.0); HEMATOCRIT 33.2 % (38.2-49.6); HEMOGLOBIN 10.7 g/dL (14.0-18.0); LYMPHOCYTES # (AUTO) 1.6 (1.0-3.2); LYMPHOCYTES % 19.1 % (18.0-39.1); MEAN CORPUSCULAR HEMOGLOBIN 33.1 pg (28-32); MEAN CORPUSCULAR HGB CONC 32.2 g/dL (31-35); MEAN CORPUSCULAR VOLUME 102.8 fL (81-99); MONOCYTES # (AUTO) 0.8 (0.2-0.8); MONOCYTES % 9.8 % (4.4-11.3); NEUTROPHILS # (AUTO) 5.9 (2.1-6.9); NEUTROPHILS % 69.1 % (38.7-80.0); RED BLOOD COUNT 3.23 x10e6/uL (4.3-5.7); RED CELL DISTRIBUTION WIDTH 18.2 % (11.7-14.4)
[2018-03-13 06:25] LABS: PLATELET COUNT 31 x10e3/uL (140-360)
[2018-03-13 06:35] LABS: ALBUMIN 3.1 g/dL (3.5-5.0); ALBUMIN/GLOBULIN RATIO 1.1 (0.8-2.0); CALCIUM 8.9 mg/dL (8.4-10.2); CREATININE, SERUM 1.75 mg/dL (0.72-1.25)
[2018-03-13] MEDS ORDERED: POTASSIUM CHLORIDE 20 MEQ TAB CR PO STA (08:26)
[2018-03-13] MEDS ORDERED: POTASSIUM CHLORIDE 20MEQ/100ML 200 ML IV ONE (08:30)
[2018-03-13 08:43] VITALS: BP 116/88
[2018-03-13 08:58] LABS: ANISOCYTOSIS SLIG; HYPOCHROMASIA SLIGHT; PLATELET ESTIMATE MARKEDLY DECREASED; PLATELET MORPHOLOGY COMMENT FEW GIANT; POIKILOCYTOSIS SLIGHT; RBC MORPHOLOGY COMMENT NORMAL
[2018-03-13] MEDS: FUROSEMIDE INJ 10 MG/ML 4 ML VIAL IV SCH ×3 (09:15→21:00)
[2018-03-13] MEDS ORDERED: POTASSIUM CHLORIDE 10 MEQ TABCR PO ONE (09:15)
[2018-03-13] MEDS: LEVOFLOXACIN 250MG/D5W 50ML 50 ML IV SCH (09:15)
[2018-03-13] MEDS: SODIUM BICARBONATE 650 MG TAB PO SCH ×2 (09:15→18:19)
[2018-03-13] MEDS: CARVEDILOL 12.5 MG TAB PO SCH ×2 (09:18→18:19)
[2018-03-13] MEDS: VANCOMYCIN 1GM/NS 250 ML 250 ML IV SCH (09:46)
--- NOTE | 2018-03-13 09:54 | Discharge Summary ---
TRANSFER/DISCHARGE SUMMARY He is a 42-year-old male patient admitted with left groin open wound infection and drainage. ADMITTING IMPRESSION/DIAGNOSES 1. Infected left groin wound with abscess. 2. Status post heart catheterization and angioplasty. The patient had a recent myocardial infarction. 3. The patient had percutaneous transluminal coronary angioplasty and stent and left groin closure. 4. Cardiomyopathy. 5. Human immunodeficiency virus. 6. Thrombocytopenia. 7. Renal failure. HOSPITAL COURSE: The patient was admitted with the above-diagnoses. Was treated with IV Levaquin and vancomycin. Wound care was done and plastic surgery consult was done. Hematology consult was done with Dr. Ramirez for thrombocytopenia. Renal consult was done with Dr. Berry. The patient's platelet count is fluctuating. As per plastic surgery recommendation is just local wound care and no surgical intervention for now. [facility] evaluation was done. The patient will be transferred to [facility] for continuing care. The patient had aggressive wound care and monitoring of thrombocytopenia, renal failure and potassium. The patient will continue with vancomycin and Levaquin. As per cardiology, the patient required Life Vest for ischemic cardiomyopathy. The patient will be transferred to [facility]. At [facility], the patient will follow with oncology, renal and ID services, and cardiology service. NEREIDA SMITH MD Job#: [id number] [place]
--- NOTE | 2018-03-13 10:04 | Progress Note ---
DATE: March 13, 2018 CARDIOLOGY PROGRESS NOTE SUBJECTIVE: The patient is without any complaints this morning. He reports being very sleeping, but otherwise no other complaints. OBJECTIVE VITAL SIGNS: Temperature 98.4, pulse 86, respiratory rate 12, blood pressure 116/88, oxygen saturation 93% on room air. GENERAL: Lethargic and resting comfortably in bed. Does not appear to be in any acute distress. Mother at bedside. NECK: Mild JVD noted. No carotid bruits. CARDIOVASCULAR: Regular rate and rhythm. A 3/6 systolic ejection murmur noted. Normal S1 and S2. LUNGS: Clear to auscultation throughout. No wheezing. No rhonchi or crackles. ABDOMEN: Soft and nontender. LOWER EXTREMITIES: Trace edema bilaterally. Left groin incision draining purulent drainage. CARDIOVASCULAR MEDICATIONS 1. Coreg 12.5 mg p.o. b.i.d. 2. Furosemide 40 mg IV push q.12 h. LABS: WBC 8.47, hemoglobin 10.7, hematocrit 33.3, and platelets 31,000. Sodium 139, potassium 3, creatinine 1.7, BUN 40. Telemetry is sinus rhythm. IMPRESSION 1. Recent ST-elevation myocardial infarction. 2. Coronary artery disease: Status post stenting of the left anterior descending. 3. Systolic heart failure: Most recent ejection fraction 30%. 4. Human immunodeficiency virus. 5. Chronic renal failure. 6. Thrombocytopenia. 7. Infected left groin wound. 8. Leukocytosis. PLAN: Patient will need Life Vest upon discharge. Continue telemetry monitoring at all times. Continue the above list of cardiac medications. Volume management per nephrology. Patient is not on antiplatelet therapy due to noted thrombocytopenia. Hematology following closely. Will continue to monitor very closely. Guarded prognosis. DICTATED BY ASHLEY QUIROGA NP Job#: [id number] [place]
[2018-03-13 14:00] VITALS: BP 100/72
[2018-03-13 16:00] VITALS: BP 96/75
[2018-03-13 18:00] VITALS: BP 114/81
--- NOTE | 2018-03-28 13:20 | Progress Note ---
DATE: March 12, 2018 CARDIOLOGY PROGRESS NOTE SUBJECTIVE: Patient is without any new complaints this morning. He does still endorse some pain in his left arm and leg. Otherwise, not any other complaints. Denies any chest pain or shortness of breath. OBJECTIVE VITAL SIGNS: Temperature 98.7, pulse 99, respiratory rate 16, blood pressure 105/85, oxygen saturation 98% on room air. GENERAL: Alert and oriented times 3. Resting comfortably in bed. Does not appear to be in any acute distress. Mother at the bedside. NECK: Supple. Mild JVD noted bilaterally. CARDIOVASCULAR: Regular rate and rhythm. A 3/6 systolic murmur present. Normal S1 and S2. LUNGS: Clear to auscultation throughout. No rhonchi, wheezing or crackles noted. ABDOMEN: Soft and nontender. EXTREMITIES: Lower extremities with trace edema bilaterally. Left groin incision site still draining. CARDIOVASCULAR MEDICATIONS 1. Coreg 12.5 mg p.o. b.i.d. 2. Furosemide 40 mg IV q.12 h. LABS: WBC 9.79, hemoglobin 10.8, hematocrit 34.5, and platelets 51,000. Sodium 141, potassium 3.9, BUN 42, creatinine 2.05. Magnesium not obtained. Calcium 9.7. Wound culture from incision site no growth so far. Blood cultures with no growth after 48 hours. Telemetry is sinus tachycardia. IMPRESSION 1. Recent ST-elevation myocardial infarction. 2. Coronary artery disease: Status post left anterior descending stenting. 3. Systolic heart failure with most recent ejection fraction of 30%. 4. Human immunodeficiency virus. 5. Chronic renal failure. 6. Thrombocytopenia. 7. Infected left groin wound. 8. Leukocytosis. RECOMMENDATIONS: Continue with the above list of cardiac medications. Maintain on telemetry at all times. Patient will need a Life Vest upon discharge. We will initiate the order today. Volume management per nephrology. The patient not a candidate of dual antiplatelet therapy, although with a recent stent due to thrombocytopenia. Hematology is evaluating. Continue antimicrobial therapy per infectious disease. Will continue to monitor very closely. Guarded prognosis. DICTATED BY ASHLEY QUIROGA NP Job#: [id number] [place]
== END 2018-03-13 21:27 | DRG 862 ==
LOC: ER 14:16 → ERHOLD 17:46 → IMCU 17:53
PROVIDERS: ADMIT Internal Medicine; ATTEND Internal Medicine
DX: T81.4XXA Infection following a procedure, initial encounter (principal); B20 Human immunodeficiency virus [HIV] disease; N17.0 Acute kidney failure with tubular necrosis; T81.31XA Disruption of external operation (surgical) wound, not elsewhere classified, initial encounter; I13.0 Hypertensive heart and chronic kidney disease with heart failure and stage 1 through stage 4 chronic kidney disease, or unspecified chronic kidney disease; I50.22 Chronic systolic (congestive) heart failure; L02.214 Cutaneous abscess of groin; E87.6 Hypokalemia; D69.6 Thrombocytopenia, unspecified; N18.3 Chronic kidney disease, stage 3 (moderate); I25.5 Ischemic cardiomyopathy; I25.2 Old myocardial infarction; Z95.5 Presence of coronary angioplasty implant and graft; I25.10 Atherosclerotic heart disease of native coronary artery without angina pectoris; D53.9 Nutritional anemia, unspecified; E11.22 Type 2 diabetes mellitus with diabetic chronic kidney disease; Z79.4 Long term (current) use of insulin
CPT/HCPCS: 36415; 80053; 80202; 85025; 87522; 88184; 99285; J1200; J1940; J1956; J2930; J3370; J3480; J7030

== ENCOUNTER → 2018-05-06 | Outpatient (CLI) | payer MEDICARE ==
[~2018-05-06] MED LIST changes: +ABACAVIR300 MG PO; +ASPIR 8181 MG PO; +COREG3.125 MG PO; +GABAPENTIN400 MG PO; +ISENTRESS400 MG PO; +LASIX20 MG PO; +LEVOFLOXACIN5 ML PO; +NORCO 5-325 TA1 EACH PO; +NORVIR100 MG PO; +PANTOPRAZOLE SO40 MG PO; +PLAVIX75 MG PO; +PREZISTA75 MG PO; +SUCRALFATE1 GM PO; +TYLENOL WITH C1 EACH PO; +ZOLPIDEM TARTRAT5 MG PO
== END ==
LOC: LAB 17:05
PROVIDERS: ATTEND Internal Medicine Medical Oncology
DX: D69.6 Thrombocytopenia, unspecified (principal)
CPT/HCPCS: 86022

== ENCOUNTER 2018-05-16 16:01 | Emergency (ER) | payer MEDICARE ==
[~2018-05-16] VITALS: Ht 170.2 cm; Wt 82.6 kg
--- NOTE | 2018-05-16 17:00 | Diagnostic Imaging Report ---
PROCEDURE:X-RAY CHEST, ONE VIEW COMPARISON:Patients [facility], DX, CHEST SINGLE (PORTABLE), 03/09/2018, 15:30. INDICATIONS:DIZZINESS/ABD PAIN/BLURRED VISION FINDINGS: The heart is enlarged and stable in morphology. Mild aortic ectasia. Pulmonary vasculature is prominent and indistinct, similar to previous exam. The lungs are well-inflated. No mass or infiltrate. No pleural effusion or pneumothorax. Osseous structures are unremarkable. CONCLUSION: Stable cardiomegaly. Mild pulmonary vascular congestion. Dictated by: Jose Nava M.D. on 05/16/2018 at 17:05 Electronically approved by: Jose Nava M.D. on 05/16/2018 at 17:05
[2018-05-16] MEDS: PANTOPRAZOLE 40 MG 10ML VIAL IV SCH ×2 (17:36→17:39)
[2018-05-16] MEDS ORDERED: DIATRIZOATE MEGL/DIATRIZOA SOD 30 ML BTL PO ONE (17:45)
[2018-05-16 17:55] LABS: BASOPHILS % 0.1 % (0.0-1.0); HEMATOCRIT 30.6 % (38.2-49.6); HEMOGLOBIN 9.4 g/dL (14.0-18.0); LYMPHOCYTES # (AUTO) 0.4 (1.0-3.2); LYMPHOCYTES % 5.6 % (18.0-39.1); MEAN CORPUSCULAR HEMOGLOBIN 27.6 pg (28-32); MEAN CORPUSCULAR HGB CONC 30.7 g/dL (31-35); MONOCYTES # (AUTO) 0.3 (0.2-0.8); MONOCYTES % 3.4 % (4.4-11.3); NEUTROPHILS % 88.5 % (38.7-80.0); RED CELL DISTRIBUTION WIDTH 16.7 % (11.7-14.4)
[2018-05-16 17:56] LABS: PLATELET COUNT 99 x10e3/uL (140-360)
[2018-05-16 18:19] LABS: ALBUMIN 3.6 g/dL (3.5-5.0); ALBUMIN/GLOBULIN RATIO 1.2 (0.8-2.0); ANION GAP 15.2 mmol/L (8-16); CALCIUM 9.1 mg/dL (8.4-10.2); CREATININE, SERUM 1.89 mg/dL (0.72-1.25); POTASSIUM 4.2 mmol/L (3.5-5.1)
[2018-05-16 18:26] LABS: CREATINE KINASE MB 1.1 ng/mL (0-5.0)
== END 2018-05-16 19:05 | disposition left against medical advice (07) ==
LOC: ER 16:01 → UNDOADMOB 17:39 → ERHOLD 17:39
DX: K62.5 Hemorrhage of anus and rectum (principal); K92.1 Melena; I51.9 Heart disease, unspecified
CPT/HCPCS: 36415; 71045; 80053; 82550; 82553; 83690; 84484; 85025; 93005; 99284